=== PATIENT | female | born 1935 | race Caucasian/White ===

== ENCOUNTER 2023-06-25 09:45 | Emergency (ER) | payer MEDICARE ==
[~2023-06-25] VITALS: Ht 154.9 cm; Wt 77.1 kg
[2023-06-25 09:46] VITALS: BP 149/61; PULSE 81; RESP 18
[2023-06-25] MEDS ORDERED: IOHEXOL-350 75 ML VIAL IV ONE ×2 (10:18→12:05)
[2023-06-25 10:29] LABS: BASOPHILS % (AUTO) 0.1 % (0.0-5.0); EOSINOPHILS % (AUTO) 0.1 % (0.0-8.0); HEMATOCRIT 44.4 % (36-48); LYMPHOCYTES % (AUTO) 8.8 % (21.0-51.0); MEAN CORPUSCULAR HEMOGLOBIN 31.2 pg (27.0-33.0); MEAN CORPUSCULAR HGB CONC 33.1 g/dL (32.0-36.0); MEAN CORPUSCULAR VOLUME 94.3 fL (79-99); MONOCYTES % (AUTO) 3.3 % (3.0-13.0); NEUTROPHILS % (AUTO) 87.3 % (40.0-77.0); PLATELET COUNT (AUTO) 206 K/uL (130-400); RED BLOOD CELL COUNT(AUTO) 4.71 MIL/uL (4.00-5.50); RED CELL DISTRIBUTION WIDTH 12.3 % (11.0-15.5)
[2023-06-25] MEDS ORDERED: LACTATED RINGERS 1000ML 1,000 ML IV ONE (10:30)
[2023-06-25 10:39] LABS: CREATININE 1.3 mg/dL (0.5-1.5); POTASSIUM 4.4 mmol/L (3.5-5.1)
[2023-06-25 10:43] LABS: ALBUMIN 3.9 g/dL (3.5-5.0); TOTAL PROTEIN, SERUM 7.7 g/dL (6.0-8.3)
[2023-06-25] MEDS ORDERED: ONDA4TAB10 PO (16:12)
== END 2023-06-25 17:18 | disposition home or self-care (01) ==
LOC: EDH 09:45
DX: K52.9 Noninfective gastroenteritis and colitis, unspecified (principal); F03.90 Unspecified dementia, unspecified severity, without behavioral disturbance, psychotic disturbance, mood disturbance, and anxiety; I12.9 Hypertensive chronic kidney disease with stage 1 through stage 4 chronic kidney disease, or unspecified chronic kidney disease; N18.4 Chronic kidney disease, stage 4 (severe)
CPT/HCPCS: 99285; 70450; 84484; 80053; 83690; 85025; 87040 ×2; 83605 ×2; 36415; 74177; 93005; Q9967